=== PATIENT | female | born 1980 | race African-American/Black ===

== ENCOUNTER 2017-12-11 11:59 | Emergency (ER) | payer OTHER ==
[2017-12-11 12:50] VITALS: RESP 18; TEMP 98.4
[2017-12-11] MEDS ORDERED: HYDROcodone/APAP 5-325MG 1 EACH TAB PO STA (14:30)
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
[2017-12-11 14:37] VITALS: BP 120/72; PULSE 76
== END 2017-12-11 14:50 | disposition home or self-care (01) ==
LOC: EC 11:59
DX: Z76.0 Encounter for issue of repeat prescription (principal); R60.0 Localized edema; R07.81 Pleurodynia; M25.572 Pain in left ankle and joints of left foot; E07.9 Disorder of thyroid, unspecified; F17.200 Nicotine dependence, unspecified, uncomplicated; Z79.899 Other long term (current) drug therapy
CPT/HCPCS: 99283

== ENCOUNTER 2018-09-21 13:52 | Emergency (ER) | payer OTHER ==
--- NOTE | 2018-09-21 14:23 | ED ---
Recheck HPI - General Chief Complaint: Recheck/Abnormal Lab/Rx Stated Complaint: low blood pressure/thyroid med refill Time Seen by Provider: 09/21/18 14:22 Source: patient, RN notes reviewed, old records reviewed Mode of arrival: wheelchair Limitations: no limitations - History of Present Illness Initial Comments: This is a 38-year-old female to ER for evaluation. Patient resents today for medication refill secondary to hypothyroidism for thyroid medication. Patient has recent travel history or sick contacts also states that she feels unwell. Feels weak and like she may be having a low blood counts has had low blood count Emergency denies bleeding no nausea vomiting of blood or blood in her stool no significant menses currently. Complaint: medication refill request, other (Patient alcohol also concern over low hemoglobin possibility) -: days(s) Returns Today for: other (Weakness increasing she believes it may be low hemoglobin) Symptoms Since Prior Visit: no new symptoms (As far as thyroid goes) Context: ran out of medication Associated Symptoms: malaise - Related Data Home Medications Medication Instructions Recorded Confirmed Ferrous Sulfate [Feosol] 325 mg PO DAILY 09/21/18 09/21/18 Previous Rx's Medication Instructions Recorded Levothyroxine Sodium [Synthroid] 100 mcg PO DAILY #30 tab 09/21/18 Allergies Allergy/AdvReac Type Severity Reaction Status Date / Time No Known Allergies Allergy Verified 09/21/18 14:31 Review of Systems ROS Statement: Those systems with pertinent positive or pertinent negative responses have been documented in the HPI. ROS Other: All systems not noted in ROS Statement are negative. Past Medical History Past Medical History: Thyroid Disorder Additional Past Medical History / Comment(s): anemia History of Any Multi-Drug Resistant Organisms: None Reported Past Surgical History: Section, Hysterectomy Additional Past Surgical History / Comment(s): thyroid c sections x4 Past Psychological History: No Psychological Hx Reported Smoking Status: Current every day smoker Past Alcohol Use History: None Reported Past Drug Use History: Marijuana General Exam Limitations: no limitations General appearance: alert, in no apparent distress Head exam: Present: atraumatic, normocephalic, normal inspection Eye exam: Present: normal appearance, PERRL, EOMI. Absent: scleral icterus, conjunctival injection, periorbital swelling ENT exam: Present: normal exam, mucous membranes moist Neck exam: Present: normal inspection. Absent: tenderness, meningismus, ly mphadenopathy Respiratory exam: Present: normal lung sounds bilaterally. Absent: respiratory distress, wheezes, rales, rhonchi, stridor Cardiovascular Exam: Present: regular rate, normal rhythm, normal heart sounds. Absent: systolic murmur, diastolic murmur, rubs, gallop, clicks GI/Abdominal exam: Present: soft, normal bowel sounds. Absent: distended, tenderness, guarding, rebound, rigid Extremities exam: Present: normal inspection, full ROM, normal capillary refill. Absent: tenderness, pedal edema, joint swelling, calf tenderness Back exam: Present: normal inspection Neurological exam: Present: alert, oriented X3, CN II-XII intact Psychiatric exam: Present: normal affect, normal mood Skin exam: Present: warm, dry, intact, normal color. Absent: rash Course Vital Signs 09/21/18 09/21/18 09/21/18 14:07 14:26 16:02 Temperature 98.3 F 98.1 F Pulse Rate 60 72 Respiratory 18 17 Rate Blood Pressure 95/60 108/83 118/81 O2 Sat by Pulse 100 97 Oximetry Medical Decision Making - Medical Decision Making 38 female the ER for evaluation medication refill, medication will be refilled here in the ER, patient also has normal hemoglobin here no active bleeding and can be discharged home - Lab Data Result diagrams: 09/21/18 15:05 09/21/18 15:05 Lab Results 09/21/18 09/21/18 09/21/18 Range/Units 15:05 15:05 15:05 WBC 5.8 (3.8-10.6) k/uL RBC 3.99 (3.80-5.40) m/uL Hgb 11.9 (11.4-16.0) gm/dL Hct 36.5 (34.0-46.0) % MCV 91.6 (80.0-100.0) fL MCH 30.0 (25.0-35.0) pg MCHC 32.7 (31.0-37.0) g/dL RDW 14.8 (11.5-15.5) % Plt Count 222 (150-450) k/uL Neutrophils % 53 % Lymphocytes % 35 % Monocytes % 6 % Eosinophils % 3 % Basophils % 1 % Neutrophils # 3.1 (1.3-7.7) k/uL Lymphocytes # 2.0 (1.0-4.8) k/uL Monocytes # 0.3 (0-1.0) k/uL Eosinophils # 0.2 (0-0.7) k/uL Basophils # 0.1 (0-0.2) k/uL Sodium 138 (137-145) mmol/L Potassium 3.8 (3.5-5.1) mmol/L Chloride 107 (98-107) mmol/L Carbon Dioxide 25 (22-30) mmol/L Anion Gap 6 mmol/L BUN 10 (7-17) mg/dL Creatinine 0.91 (0.52-1.04) mg/dL Est GFR (CKD-EPI)AfAm >90 (>60 ml/min/1.73 sqM) Est GFR (CKD-EPI)NonAf 79 (>60 ml/min/1.73 sqM) Glucose 76 (74-99) mg/dL Calcium 8.7 (8.4-10.2) mg/dL Magnesium 2.1 (1.6-2.3) mg/dL Total Bilirubin 0.4 (0.2-1.3) mg/dL AST 32 (14-36) U/L ALT 16 (9-52) U/L Alkaline Phosphatase 57 (38-126) U/L Creatine Kinase 510 H (30-135) U/L Troponin I <0.012 (0.000-0.034) ng/mL Total Protein 7.2 (6.3-8.2) g/dL Albumin 4.1 (3.5-5.0) g/dL Lipase 46 (23-300) U/L Disposition Clinical Impression: Encounter for medication refill Disposition: HOME SELF-CARE Condition: Good Instructions (If sedation given, give patient instructions): Medicine Refill (ED) Prescriptions: Levothyroxine Sodium [Synthroid] 100 mcg PO DAILY #30 tab Is patient prescribed a controlled substance at d/c from ED?: No Referrals: None,Stated [Primary Care Provider] - 1-2 days
[2018-09-21] MEDS ORDERED: LEVOTHYROXINE 100 MCG TAB PO STA (14:50)
[2018-09-21] MEDS ORDERED: SODIUM CHLORIDE 0.9% 1,000 ML IV STA (14:50)
[2018-09-21 15:17] LABS: Basophils # (A) 0.1 k/uL (0-0.2); Basophils % (A) 1 %; Eosinophils # (A) 0.2 k/uL (0-0.7); Eosinophils % (A) 3 %; HCT 36.5 % (34.0-46.0); HGB 11.9 gm/dL (11.4-16.0); Lymphocytes % (A) 35 %; MCHC 32.7 g/dL (31.0-37.0); MCV 91.6 fL (80.0-100.0); Mean Platelet Volume 7.7; Monocytes # (A) 0.3 k/uL (0-1.0); Monocytes % (A) 6 %; Neutrophils # (A) 3.1 k/uL (1.3-7.7); Neutrophils % (A) 53 %; Platelet Count 222 k/uL (150-450); RBC 3.99 m/uL (3.80-5.40); RDW 14.8 % (11.5-15.5); WBC 5.8 k/uL (3.8-10.6)
[2018-09-21 15:31] LABS: ALT 16 U/L (9-52); AST 32 U/L (14-36); African American GFR (CKD) >90 (>60 ml/min/1.73 sqM); Albumin 4.1 g/dL (3.5-5.0); Alkaline Phosphatase 57 U/L (38-126); Anion Gap 6 mmol/L; Blood Urea Nitrogen 10 mg/dL (7-17); Calcium 8.7 mg/dL (8.4-10.2); Carbon Dioxide 25 mmol/L (22-30); Chloride 107 mmol/L (98-107); Creatine Kinase 510 U/L (30-135); Glucose 76 mg/dL (74-99); Lipase 46 U/L (23-300); Magnesium 2.1 mg/dL (1.6-2.3); Potassium 3.8 mmol/L (3.5-5.1); Sodium 138 mmol/L (137-145); Total Bilirubin 0.4 mg/dL (0.2-1.3); Total Protein 7.2 g/dL (6.3-8.2)
[2018-09-21 16:04] VITALS: BP 118/81; PULSE 72; RESP 17; TEMP 98.1
== END 2018-09-21 16:04 | disposition home or self-care (01) ==
LOC: EC 13:52
DX: Z76.0 Encounter for issue of repeat prescription (principal); D64.9 Anemia, unspecified; F17.200 Nicotine dependence, unspecified, uncomplicated; Z79.899 Other long term (current) drug therapy
CPT/HCPCS: 36415; 80053; 82550; 83690; 83735; 84484; 85025; 96360; 99282

== ENCOUNTER 2018-10-20 16:08 | Emergency (ER) | payer OTHER ==
[2018-10-20 16:40] VITALS: BP 120/95; PULSE 77; RESP 17
[2018-10-20] MEDS ORDERED: PENICILLIN VK 500MG STARTER 4 TAB BTL PO STA (18:11)
[2018-10-20] MEDS ORDERED: ACETAMINOPHEN TAB 500 MG TAB PO STA (18:11)
--- NOTE | 2018-10-20 18:12 | ED ---
General Adult HPI - General Chief complaint: Dental/Oral Stated complaint: tooth pain Time Seen by Provider: 10/20/18 17:11 Source: patient, RN notes reviewed Mode of arrival: ambulatory - History of Present Illness Initial comments: 38-year-old female presents to the emergency department for chief Markus of dental pain. Patient states this has been ongoing for a few days. Patient states she thinks her wisdom tooth is growing into her nerve. Denies any difficulty opening the mouth. States it does hurt hot and cold. Denies any fevers or chills. Denies any neck tenderness or stiffness.Patient has no other complaints at this time including shortness of breath, chest pain, abdominal pain, nausea or vomiting, headache, or visual changes. - Related Data Home Medications Medication Instructions Recorded Confirmed Ibuprofen [Advil] 200 mg PO Q6H PRN 10/20/18 10/20/18 Previous Rx's Medication Instructions Recorded Levothyroxine Sodium [Synthroid] 100 mcg PO DAILY #30 tab 09/21/18 Penicillin V Potassium [Pen Vee K] 500 mg PO Q6H 10 Days #40 tablet 10/20/18 Allergies Allergy/AdvReac Type Severity Reaction Status Date / Time No Known Allergies Allergy Verified 10/20/18 17:29 Review of Systems ROS Statement: Those systems with pertinent positive or pertinent negative responses have been documented in the HPI. ROS Other: All systems not noted in ROS Statement are negative. Past Medical History Past Medical History: Thyroid Disorder Additional Past Medical History / Comment(s): anemia History of Any Multi-Drug Resistant Organisms: None Reported Past Surgical History: Section, Hysterectomy Additional Past Surgical History / Comment(s): thyroid c sections x4 Past Psychological History: No Psychological Hx Reported Smoking Status: Current every day smoker Past Alcohol Use History: None Reported Past Drug Use History: Marijuana General Exam General appearance: alert, in no apparent distress Head exam: Present: atraumatic, normocephalic, normal inspection Eye exam: Present: normal appearance, PERRL, EOMI. Absent: scleral icterus, conjunctival injection, periorbital swelling ENT exam: Present: normal exam, mucous membranes moist, TM's normal bilaterally, normal external ear exam. Absent: normal oropharynx (Fracture evident to tooth 32. No abscess present.) Neck exam: Present: normal inspection, full ROM. Absent: tenderness, meningismus, lymphadenopathy Respiratory exam: Present: normal lung sounds bilaterally. Absent: respiratory distress, wheezes, rales, rhonchi, stridor Cardiovascular Exam: Present: regular rate, normal rhythm, normal heart sounds. Absent: systolic murmur, diastolic murmur, rubs, gallop, clicks Neurological exam: Present: alert, oriented X3, CN II-XII intact Psychiatric exam: Present: normal affect, normal mood Course Vital Signs 10/20/18 16:37 Pulse Rate 77 Respiratory 17 Rate Blood Pressure 120/95 O2 Sat by Pulse 99 Oximetry Medical Decision Making - Medical Decision Making 38-year-old female percent to the emergency department for dental pain times a few days. Patient states her back molar hurts. No fevers or chills. No neck stiffness or difficulty opening the mouth. No sublingual edema. Patient does appear to have a fractured tooth right posterior molar. No abscesses identified by palpation or visualization of the gumline. Patient will be started on penicillin. Given Tylenol. Recommended following up with [facility]. Recommended returning here if she has any worsening symptoms. Disposition Clinical Impression: Toothache, Fracture of tooth Disposition: HOME SELF-CARE Condition: Good Instructions (If sedation given, give patient instructions): Toothache (ED) Additional Instructions: Please follow up with dentist and primary care soon as possible. Take penicillin as directed. Take Tylenol for pain. Return to the emergency department if you have any worsening symptoms. Pending Sale To [facility] dental clinic: [address] [place] [id number] Prescriptions: Penicillin V Potassium [Pen Vee K] 500 mg PO Q6H 10 Days #40 tablet Is patient prescribed a controlled substance at d/c from ED?: No Referrals: Gladys Velez MD [REFERRING] - 1-2 days Time of Disposition: 18:10
== END 2018-10-20 18:37 | disposition home or self-care (01) ==
LOC: EC 16:08
DX: S02.5XXA Fracture of tooth (traumatic), initial encounter for closed fracture (principal); F17.200 Nicotine dependence, unspecified, uncomplicated; X58.XXXA Exposure to other specified factors, initial encounter
CPT/HCPCS: 99283

== ENCOUNTER 2019-03-04 02:39 | Inpatient (IN) | payer OTHER ==
[2019-03-04] MEDS ORDERED: SODIUM CHLORIDE 0.9% 500 ML 500 ML IV STA (02:41)
[2019-03-04] MEDS ORDERED: AMPICILLIN-SULBACTAM 3 GM in SODIUM CHLORIDE 0.9% 100 ML IVPB STA (02:41)
[2019-03-04 03:14] LABS: Basophils % (A) 0 %; Eosinophils # (A) 0.1 k/uL (0-0.7); Eosinophils % (A) 1 %; HCT 29.2 % (34.0-46.0); HGB 10.1 gm/dL (11.4-16.0); Lymphocytes # (A) 1.1 k/uL (1.0-4.8); Lymphocytes % (A) 9 %; MCH 30.9 pg (25.0-35.0); MCHC 34.5 g/dL (31.0-37.0); MCV 89.5 fL (80.0-100.0); Mean Platelet Volume 5.9; Monocytes # (A) 0.5 k/uL (0-1.0); Monocytes % (A) 5 %; Neutrophils # (A) 10.1 k/uL (1.3-7.7); Neutrophils % (A) 84 %; Platelet Count 267 k/uL (150-450); RBC 3.26 m/uL (3.80-5.40); RDW 13.1 % (11.5-15.5); WBC 11.9 k/uL (3.8-10.6)
[2019-03-04] MEDS ORDERED: MORPHINE SULFATE 4 MG/ML SYRINGE IV STA (03:28)
--- NOTE | 2019-03-04 03:33 | CT ---
EXAMINATION TYPE: CT soft tissue neck w con DATE OF EXAM: 03/04/2019 3:16 AM COMPARISON: None HISTORY: infection CT DLP: 262.4 mGycm Automated exposure control for dose reduction was used. CONTRAST: CT scan of the neck is performed following with IV Contrast, patient injected with 100 mL of Isovue 3 00. Axial images are obtained, coronal and sagittal reformatted images are reviewed. FINDINGS: There is asymmetric increased soft tissue density at the angle of the right hemimandible. There is mi nimal subcutaneous edema on the anterior neck on the right side compared to the left. The epiglottis is normal. Adenoids appear normal. There is mild prominence of the tonsils. Subglottic trachea appear s normal. There are clips from thyroid surgery. Margins of the right submandibular salivary gland are indistinct. There is edema around the gland. There is no discrete fluid collection. There is normal contrast opacification of the carotid arteries and jugular veins. There is normal con trast opacification of the vertebral arteries. There is no significant cervical adenopathy. There is some asymmetric increased density in the inferior right parotid gland compared to the left. IMPRESSION: There is swelling and edema around the right submandibular salivary gland and also invol ving the lingula gland. There is minimal involvement of the right parotid gland and this is consisten t with inflammatory process. There is no drainable fluid collection.
[2019-03-04 03:40] LABS: African American GFR (CKD) >90 (>60 ml/min/1.73 sqM); Anion Gap 7 mmol/L; Blood Urea Nitrogen 6 mg/dL (7-17); Calcium 8.2 mg/dL (8.4-10.2); Carbon Dioxide 23 mmol/L (22-30); Chloride 108 mmol/L (98-107); Glucose 91 mg/dL (74-99); Non-African American GFR(CKD) >90 (>60 ml/min/1.73 sqM); Potassium 3.2 mmol/L (3.5-5.1); Sodium 138 mmol/L (137-145)
[2019-03-04] MEDS ORDERED: HYDROmorphone 0.5 MG/0.5 ML SYRINGE IVP STA (04:31)
[2019-03-04] MEDS ORDERED: ACETAMINOPHEN TAB 325 MG TAB PO PRN (04:43)
[2019-03-04] MEDS ORDERED: NALOXONE 0.4 MG/ML 1 ML VIAL IV PRN (04:43)
[2019-03-04] MEDS ORDERED: ONDANSETRON 4 MG/2 ML VIAL IVP PRN (04:43)
--- NOTE | 2019-03-04 04:51 | ED ---
ENT HPI - General Chief complaint: Dental/Oral Stated complaint: Dental Pain Time Seen by Provider: 03/04/19 02:41 Source: patient, EMS Mode of arrival: EMS - History of Present Illness Initial comments: This patient is 38-year-old woman who presents to be evaluated for possible Barrington's angina. The patient had gone to [facility] this evening for right-sided dental pain and associated facial swelling. While the patient was there she had labs checked and was given dose of clindamycin 900 mg by IV. The physician there phoned and stated that he was concerned about Barrington angina based on the exam and transferred patient here is a do not have oral surgery cov [facility]. The patient states that she began having right mandibular dental pain approximately 8 days ago. She states that she did not have a chance to see the dentist as she was working. For the past approximately 3 days she has noted increasing swelling that got much worse tonight. She states the pain as an aching, severe, worse when she attempts to eat. She is not having any dyspnea or trouble with speech. MD complaint: tooth pain Onset/Timin -: days(s) Location: tooth # (32) Severity: severe Quality: aching Consistency: constant Improves with: none Worsens with: eating Associated Symptoms: toothache - Related Data Home Medications Medication Instructions Recorded Confirmed Levothyroxine Sodium [Synthroid] 100 mcg PO DAILY 03/04/19 03/04/19 Previous Rx's Medication Instructions Recorded Acetaminophen Tab [Tylenol] 650 mg PO Q6HR PRN tab 03/08/19 Amoxicillin/Potassium Clav 1 tab PO Q12HR #14 tab 03/08/19 [Augmentin 875-125 Tablet] Ibuprofen [Motrin] 400 mg PO Q6HR PRN #20 tab 03/08/19 Multivitamins, Thera [Multivitamin] 1 tab PO DAILY #30 tablet 03/08/19 Allergies Allergy/AdvReac Type Severity Reaction Status Date / Time No Known Allergies Allergy Verified 03/04/19 09:07 Review of Systems ROS Statement: Those systems with pertinent positive or pertinent negative responses have been documented in the HPI. ROS Other: All systems not noted in ROS Statement are negative. Constitutional: Denies: fever, chills Respiratory: Denies: cough, dyspnea Cardiovascular: Denies: chest pain Gastrointestinal: Denies: abdominal pain, vomiting Skin: Denies: rash Neurological: Denies: headache, weakness Past Medical History Past Medical History: Thyroid Disorder Additional Past Medical History / Comment(s): anemia History of Any Multi-Drug Resistant Organisms: None Reported Past Surgical History: Section, Hysterectomy Additional Past Surgical History / Comment(s): thyroid c sections x4 Past Psychological History: No Psychological Hx Reported Smoking Status: Current every day smoker Past Alcohol Use History: None Reported Past Drug Use History: Marijuana General Exam General appearance: alert, in no apparent distress Head exam: Present: atraumatic, normocephalic Eye exam: Present: normal appearance. Absent: scleral icterus, conjunctival injection ENT exam: Present: mucous membranes moist, TM's normal bilaterally Neck exam: Present: tenderness, full ROM, other (There is submandibular fullness on the right. There is moderate tenderness. Speech is clear.). Absent: meningismus Respiratory exam: Present: normal lung sounds bilaterally. Absent: respiratory distress, wheezes, rales, rhonchi, stridor Cardiovascular Exam: Present: regular rate, normal rhythm, normal heart sounds. Absent: systolic murmur, diastolic murmur, rubs, gallop GI/Abdominal exam: Present: soft. Absent: distended, tenderness, guarding, rebound Extremities exam: Present: normal inspection, normal capillary refill. Absent: pedal edema, calf tenderness Back exam: Present: normal inspection Neurological exam: Present: alert Skin exam: Present: warm, dry, intact, normal color. Absent: rash Course Vital Signs 03/04/19 03/04/19 02:42 05:10 Temperature 98 F Pulse Rate 83 62 Respiratory 18 16 Rate Blood Pressure 124/84 117/89 O2 Sat by Pulse 99 96 Oximetry Medical Decision Making - Lab Data Result diagrams: 03/07/19 06:09 03/07/19 06:09 Lab Results 03/04/19 03/04/19 03/04/19 Range/Units 03:00 03:00 22:11 WBC 11.9 H (3.8-10.6) k/uL RBC 3.26 L (3.80-5.40) m/uL Hgb 10.1 L (11.4-16.0) gm/dL Hct 29.2 L (34.0-46.0) % MCV 89.5 (80.0-100.0) fL MCH 30.9 (25.0-35.0) pg MCHC 34.5 (31.0-37.0) g/dL RDW 13.1 (11.5-15.5) % Plt Count 267 (150-450) k/uL Neutrophils % 84 % Lymphocytes % 9 % Monocytes % 5 % Eosinophils % 1 % Basophils % 0 % Neutrophils # 10.1 H (1.3-7.7) k/uL Lymphocytes # 1.1 (1.0-4.8) k/uL Monocytes # 0.5 (0-1.0) k/uL Eosinophils # 0.1 (0-0.7) k/uL Basophils # 0.0 (0-0.2) k/uL Sodium 138 (137-145) mmol/L Potassium 3.2 L (3.5-5.1) mmol/L Chloride 108 H (98-107) mmol/L Carbon Dioxide 23 (22-30) mmol/L Anion Gap 7 mmol/L BUN 6 L (7-17) mg/dL Creatinine 0.65 (0.52-1.04) mg/dL Est GFR (CKD-EPI)AfAm >90 (>60 ml/min/1.73 sqM) Est GFR (CKD-EPI)NonAf >90 (>60 ml/min/1.73 sqM) Glucose 91 (74-99) mg/dL POC Glucose (mg/dL) 151 H (75-99) mg/dL POC Glu [place] ID Karo Finch Calcium 8.2 L (8.4-10.2) mg/dL 03/05/19 03/05/19 03/05/19 Range/Units 06:57 08:59 08:59 WBC 19.5 H (3.8-10.6) k/uL RBC 3.56 L (3.80-5.40) m/uL Hgb 10.7 L (11.4-16.0) gm/dL Hct 32.7 L (34.0-46.0) % MCV 91.7 (80.0-100.0) fL MCH 30.1 (25.0-35.0) pg MCHC 32.9 (31.0-37.0) g/dL RDW 13.4 (11.5-15.5) % Plt Count 305 (150-450) k/uL Neutrophils % 92 % Lymphocytes % 5 % Monocytes % 3 % Eosinophils % 0 % Basophils % 0 % Neutrophils # 17.9 H (1.3-7.7) k/uL Lymphocytes # 0.9 L (1.0-4.8) k/uL Monocytes # 0.5 (0-1.0) k/uL Eosinophils # 0.0 (0-0.7) k/uL Basophils # 0.0 (0-0.2) k/uL Sodium 138 (137-145) mmol/L Potassium 3.9 (3.5-5.1) mmol/L Chloride 104 (98-107) mmol/L Carbon Dioxide 25 (22-30) mmol/L Anion Gap 9 mmol/L BUN 10 (7-17) mg/dL Creatinine 0.65 (0.52-1.04) mg/dL Est GFR (CKD-EPI)AfAm >90 (>60 ml/min/1.73 sqM) Est GFR (CKD-EPI)NonAf >90 (>60 ml/min/1.73 sqM) Glucose 133 H (74-99) mg/dL POC Glucose (mg/dL) 152 H (75-99) mg/dL POC Glu [place] ID Christie Jackson Calcium 8.5 (8.4-10.2) mg/dL 03/05/19 03/05/19 03/05/19 Range/Units 12:24 16:41 20:37 WBC (3.8-10.6) k/uL RBC (3.80-5.40) m/uL Hgb (11.4-16.0) gm/dL Hct (34.0-46.0) % MCV (80.0-100.0) fL MCH (25.0-35.0) pg MCHC (31.0-37.0) g/dL RDW (11.5-15.5) % Plt Count (150-450) k/uL Neutrophils % % Lymphocytes % % Monocytes % % Eosinophils % % Basophils % % Neutrophils # (1.3-7.7) k/uL Lymphocytes # (1.0-4.8) k/uL Monocytes # (0-1.0) k/uL Eosinophils # (0-0.7) k/uL Basophils # (0-0.2) k/uL Sodium (137-145) mmol/L Potassium (3.5-5.1) mmol/L Chloride (98-107) mmol/L Carbon Dioxide (22-30) mmol/L Anion Gap mmol/L BUN (7-17) mg/dL Creatinine (0.52-1.04) mg/dL Est GFR (CKD-EPI)AfAm (>60 ml/min/1.73 sqM) Est GFR (CKD-EPI)NonAf (>60 ml/min/1.73 sqM) Glucose (74-99) mg/dL POC Glucose (mg/dL) 142 H 123 H 163 H (75-99) mg/dL POC Glu [employer] MCKENZIE Manuel, Christie Manuel, Karo Nunez Calcium (8.4-10.2) mg/dL 03/06/19 03/06/19 03/06/19 Range/Units 07:04 07:53 07:53 WBC 21.2 H (3.8-10.6) k/uL RBC 3.60 L (3.80-5.40) m/uL Hgb 10.7 L (11.4-16.0) gm/dL Hct 33.3 L (34.0-46.0) % MCV 92.5 (80.0-100.0) fL MCH 29.7 (25.0-35.0) pg MCHC 32.1 (31.0-37.0) g/dL RDW 13.6 (11.5-15.5) % Plt Count 335 (150-450) k/uL Neutrophils % 92 % Lymphocytes % 5 % Monocytes % 3 % Eosinophils % 0 % Basophils % 0 % Neutrophils # 19.4 H (1.3-7.7) k/uL Lymphocytes # 1.0 (1.0-4.8) k/uL Monocytes # 0.6 (0-1.0) k/uL Eosinophils # 0.0 (0-0.7) k/uL Basophils # 0.0 (0-0.2) k/uL Sodium 141 (137-145) mmol/L Potassium 4.7 (3.5-5.1) mmol/L Chloride 102 (98-107) mmol/L Carbon Dioxide 30 (22-30) mmol/L Anion Gap 9 mmol/L BUN 11 (7-17) mg/dL Creatinine 0.71 (0.52-1.04) mg/dL Est GFR (CKD-EPI)AfAm >90 (>60 ml/min/1.73 sqM) Est GFR (CKD-EPI)NonAf >90 (>60 ml/min/1.73 sqM) Glucose 111 H (74-99) mg/dL POC Glucose (mg/dL) 130 H (75-99) mg/dL POC Glu [place] ID Blue, Heather Calcium 9.2 (8.4-10.2) mg/dL 03/06/19 Range/Units 11:52 WBC (3.8-10.6) k/uL RBC (3.80-5.40) m/uL Hgb (11.4-16.0) gm/dL Hct (34.0-46.0) % MCV (80.0-100.0) fL MCH (25.0-35.0) pg MCHC (31.0-37.0) g/dL RDW (11.5-15.5) % Plt Count (150-450) k/uL Neutrophils % % Lymphocytes % % Monocytes % % Eosinophils % % Basophils % % Neutrophils # (1.3-7.7) k/uL Lymphocytes # (1.0-4.8) k/uL Monocytes # (0-1.0) k/uL Eosinophils # (0-0.7) k/uL Basophils # (0-0.2) k/uL Sodium (137-145) mmol/L Potassium (3.5-5.1) mmol/L Chloride (98-107) mmol/L Carbon Dioxide (22-30) mmol/L Anion Gap mmol/L BUN (7-17) mg/dL Creatinine (0.52-1.04) mg/dL Est GFR (CKD-EPI)AfAm (>60 ml/min/1.73 sqM) Est GFR (CKD-EPI)NonAf (>60 ml/min/1.73 sqM) Glucose (74-99) mg/dL POC Glucose (mg/dL) 130 H (75-99) mg/dL POC Glu [place] ID Blue, Heather Calcium (8.4-10.2) mg/dL Disposition Clinical Impression: Toothache, Dental infection Disposition: ADMITTED IP TO THIS HOSP Condition: Good Is patient prescribed a controlled substance at d/c from ED?: No
[2019-03-04] MEDS: methylPREDNISolone SOD SUCCI 125 MG/2 ML VIAL IV SCH ×3 (05:52→17:51)
[2019-03-04] MEDS: LEVOTHYROXINE 50 MCG TAB PO SCH (06:05)
[2019-03-04] MEDS: HYDROmorphone 1 MG/ML 1 ML SYRINGE IVP PRN ×3 (06:58→12:26)
--- NOTE | 2019-03-04 10:59 | CONS ---
CONSULTATION CHIEF COMPLAINT: "My face is swollen". HISTORY OF PRESENT ILLNESS: The patient is a 38-year-old Black female who states that she has had intermittent pain and swelling associated with the lower right wisdom tooth. She states that approximately a week ago it started to swell and intermittently caused pain. This progressively worsened and she presented to the ER this morning where she was evaluated and admitted for right submandibular swelling and pain secondary to an odontogenic infection. PAST MEDICAL HISTORY: Her past medical history significant for hypothyroidism and anemia. SOCIAL HISTORY: Social history: The patient denies any smoking, alcohol abuse, or illicit drug use. MEDICATIONS: Her medications include Synthroid and iron supplementation. PHYSICAL EXAMINATION: Physical examination reveals the patient to be in mild distress. Resting comfortably. Her vitals are stable. Head and neck exam shows moderate soft tissue swelling of the right submandibular region extending to the midline. This area is very tender to palpation. Intraoral examination reveals tooth #32 is partially erupted with associated pericoronitis and purulent drainage draining from the region. The floor of the mouth is mildly tender. It is not elevated. The examination of the pharynx is limited secondary to her openings. Her maximal incisal opening is approximately 30 mm. The swelling extraorally is limited to the submandibular regions and into the buccal space. Labs reveal a white count of 11.9 and hemoglobin of 10. CT scan shows swelling adjacent to the submandibular gland with no definitive area of fluid collection. ASSESSMENT: Right submandibular space infection, right buccal space infection, odontogenic infection associated with tooth #32. PLAN: 1. Continue the IV Unasyn and IV steroids. 2. Apply heat to the face in that region. 3. Head of bed elevated. 4. A blenderized diet is recommended and can be advanced to soft as tolerated. 5. At this point, the area is draining and no surgery is suggested at this time. 6. I will continue to follow the patient. If the area worsens or the airway is compromised, an I and D will be performed. MMODL / IJN: [id number] /
[2019-03-04] MEDS: AMPICILLIN-SULBACTAM 3 GM in SODIUM CHLORIDE 0.9% 100 ML IVPB SCH ×2 (11:22→20:32)
[2019-03-04] MEDS: IBUPROFEN 400 MG TAB PO PRN (11:28)
[2019-03-04] MEDS ORDERED: TEMAZEPAM 15 MG CAP PO PRN (15:06)
[2019-03-04] MEDS ORDERED: ALPRAZolam 0.25 MG TAB PO PRN (15:06)
[2019-03-04] MEDS: HYDROcodone/APAP 5-325MG 1 EACH TAB PO PRN ×2 (16:05→22:10)
[2019-03-04] MEDS: INSULIN ASPART (NovoLOG) 100 UNIT/ML VIAL SQ SCH ×2 (17:50→22:13)
[2019-03-04] MEDS: HYDROmorphone 0.5 MG/0.5 ML SYRINGE IVP PRN ×2 (17:50→23:50)
--- NOTE | 2019-03-04 21:11 | HP ---
HISTORY AND PHYSICAL DATE OF SERVICE: 03/04/2019 CHIEF COMPLAINT: Pain and swelling of the right side of the neck and dental pain. HISTORY OF PRESENT ILLNESS: This 38-year-old woman with a past medical history of multiple medical problems including history of hypothyroidism, anemia, section, is not being followed by any primary physician in the outpatient setting, was complaining of significant pain and swelling of the right side of the face for the past several days. The patient is on clindamycin from [facility] per ER physician because of increasing pain and swelling. Patient came to [facility] and admitted for further evaluation and treatment. Evaluation showed an increased WBC otherwise hypokalemia. The patient also had a soft tissue CT scan of the neck which showed swelling and edema around the right submandibular salivary gland and minimal involvement of the right parotid gland was also noted and the patient is admitted for further evaluation and treatment. There is no history of fever, rigors. No headache loss of consciousness, seizures at this time. The patient also had intermittent pain in the right lower wisdom tooth as well. PAST MEDICAL HISTORY: History of hypothyroidism, history of anemia, section. MEDICATIONS: Prior to admission home medications include levothyroxine 100 mcg p.o. daily. ALLERGIES: None. FAMILY HISTORY: No history of heart attacks or strokes in the family. SOCIAL HISTORY: History of THC, history of smoking and ongoing. REVIEW OF SYSTEMS: ENT As mentioned earlier. CARDIOVASCULAR No angina or palpitations. RESPIRATORY No cough, no hemoptysis. GI No nausea, vomiting, or diarrhea. No dysuria. NERVOUS No numbness or weakness. ALLERGY/IMMUNOLOGY No asthma or hayfever. MUSCULOSKELETAL As mentioned earlier. HEMATOLOGY/ONCOLOGY Negative. ENDOCRINE As mentioned earlier. SKIN Negative. CONSTITUTIONAL No history of fever or weight loss. PSYCHIATRY As mentioned earlier PHYSICAL EXAMINATION: Alert and oriented x3. Pulse 54, blood pressure 115/76, respirations 16, temperature 98.0, pulse ox 97% on room air. HEENT: Conjunctivae normal. Oral mucosa moist. NECK: No jugular venous distention. No lymph node enlargement. CARDIOVASCULAR: S1, S2. RESPIRATORY: Diminished breath sounds at the bases. A few scattered rhonchi, no crackles. ABDOMEN: Soft, nontender. LEGS: No swelling. NERVOUS SYSTEM: Higher functions mentioned earlier. Moves all four limbs. No focal deficits. Examination of the neck: Significant pain and swelling of the right subcondylar area with firm to hard swelling present. LABS: WBC 7.2, hemoglobin 10.1, sodium 130, potassium 3.2. ASSESSMENT: 1. Right neck pain and swelling of possibly right submandibular space infection with a right buccal space infection with odontogenic infection. 2. Increased WBC. 3. Anemia. 4. Rule out submandibular sialadenitis, right. 5. Hypokalemia. 6. History of continued ongoing nicotine dependence. 7. History of THC. 8. History of anemia. 9. History of section. RECOMMENDATIONS AND DISCUSSION: In this 38-year-old woman who presented with multiple medical issues, at this time I recommend to continue current management, symptomatic treatment. Patient has been started on broad spectrum IV antibiotics, pain management, DVT prophylaxis. Patient is on IV Unasyn. Closely follow with dental surgeon, Dr. Miner. Otherwise, continue to monitor. I would also recommend the patient to follow up with primary physician closely after discharge. Further recommendations to follow. MMODL / IJN: [id number] /
[2019-03-04] MEDS: HEPARIN SODIUM,PORCINE 5,000 UNIT/ML 1 ML VIAL SQ SCH (22:05)
[2019-03-04 22:16] LABS: Glucose,Whole Blood 151 mg/dL (75-99)
[2019-03-05] MEDS: methylPREDNISolone SOD SUCCI 125 MG/2 ML VIAL IV SCH ×5 (00:07→23:30)
[2019-03-05] MEDS: HYDROmorphone 0.5 MG/0.5 ML SYRINGE IVP PRN ×3 (03:00→10:34)
[2019-03-05] MEDS: AMPICILLIN-SULBACTAM 3 GM in SODIUM CHLORIDE 0.9% 100 ML IVPB SCH ×3 (04:56→21:07)
[2019-03-05] MEDS: HYDROcodone/APAP 5-325MG 1 EACH TAB PO PRN (04:58)
[2019-03-05] MEDS: LEVOTHYROXINE 50 MCG TAB PO SCH (06:15)
[2019-03-05 07:43] LABS: Glucose,Whole Blood 152 mg/dL (75-99)
[2019-03-05] MEDS: PANTOPRAZOLE 40 MG TABLET PO SCH (07:59)
[2019-03-05] MEDS: HEPARIN SODIUM,PORCINE 5,000 UNIT/ML 1 ML VIAL SQ SCH ×2 (08:00→21:07)
[2019-03-05] MEDS: HYDROmorphone 1 MG/ML 1 ML SYRINGE IVP PRN ×4 (08:00→21:08)
[2019-03-05] MEDS: INSULIN ASPART (NovoLOG) 100 UNIT/ML VIAL SQ SCH ×4 (08:07→21:08)
[2019-03-05 09:18] LABS: Basophils % (A) 0 %; Eosinophils % (A) 0 %; HCT 32.7 % (34.0-46.0); HGB 10.7 gm/dL (11.4-16.0); Lymphocytes # (A) 0.9 k/uL (1.0-4.8); Lymphocytes % (A) 5 %; MCH 30.1 pg (25.0-35.0); MCHC 32.9 g/dL (31.0-37.0); MCV 91.7 fL (80.0-100.0); Mean Platelet Volume 6.6; Monocytes # (A) 0.5 k/uL (0-1.0); Monocytes % (A) 3 %; Neutrophils # (A) 17.9 k/uL (1.3-7.7); Neutrophils % (A) 92 %; Platelet Count 305 k/uL (150-450); RBC 3.56 m/uL (3.80-5.40); RDW 13.4 % (11.5-15.5); WBC 19.5 k/uL (3.8-10.6)
[2019-03-05 09:21] LABS: African American GFR (CKD) >90 (>60 ml/min/1.73 sqM); Anion Gap 9 mmol/L; Blood Urea Nitrogen 10 mg/dL (7-17); Calcium 8.5 mg/dL (8.4-10.2); Carbon Dioxide 25 mmol/L (22-30); Chloride 104 mmol/L (98-107); Glucose 133 mg/dL (74-99); Non-African American GFR(CKD) >90 (>60 ml/min/1.73 sqM); Potassium 3.9 mmol/L (3.5-5.1); Sodium 138 mmol/L (137-145)
[2019-03-05] MEDS: MULTIVITAMINS, THERA 1 EACH TAB PO SCH (10:16)
--- NOTE | 2019-03-05 11:21 | XR ---
EXAMINATION TYPE: XR mandible complete DATE OF EXAM: 03/05/2019 COMPARISON: CT neck 1 day earlier. HISTORY: Right tooth abscess presurgical. TECHNIQUE: 5 views of mandible including oblique and lateral images along with frontal limits. FINDINGS: Innumerable surgical clips from thyroidectomy are noted. Multiple cavitary fillings through out maxillary and mandibular teeth are seen. There is lucency at the root of right lateral third mola r tooth corresponding to known periApical abscess with moderate to severe adjacent asymmetric right-s ided soft tissue swelling redemonstrated. IMPRESSION: As above.
[2019-03-05 12:29] LABS: Glucose,Whole Blood 142 mg/dL (75-99)
[2019-03-05] MEDS ORDERED: LIDOCAINE 2%-EPI 1:100,000 20 ML VIAL SUBMUCOSAL ONE ×3 (13:40→14:56)
[2019-03-05] MEDS ORDERED: IV FLUID CONTINUATION 300 ML IV ONE (13:41)
[2019-03-05] MEDS ORDERED: fentaNYL (PF) 50 MCG/ML 2 ML AMP ONE (14:30)
[2019-03-05] MEDS ORDERED: NEOSTIGMINE 1 MG/ML 10 ML VIAL ONE (14:30)
[2019-03-05] MEDS ORDERED: MIDAZOLAM 2 MG/2 ML VIAL ONE (14:30)
[2019-03-05] MEDS ORDERED: LIDOCAINE 1% INJ 10MG/ML (20 ML MDV) ONE (14:30)
[2019-03-05] MEDS ORDERED: ROCURONIUM BROMIDE 10 MG/ML 10 ML VIAL IV ONE (14:30)
[2019-03-05] MEDS ORDERED: PROPOFOL 10 MG/ML 20 ML VIAL IV ONE (14:30)
[2019-03-05] MEDS ORDERED: GLYCOPYRROLATE 0.2 MG/ML 2 ML VIAL ONE (14:30)
[2019-03-05] MEDS ORDERED: LACTATED RINGERS 1,000 ML IV ONE (14:53)
[2019-03-05] MEDS: HYDROmorphone 1 MG/ML 1 ML SYRINGE IVP ONE ×2 (15:41→15:46)
[2019-03-05 16:56] LABS: Glucose,Whole Blood 123 mg/dL (75-99)
[2019-03-05 20:43] LABS: Glucose,Whole Blood 163 mg/dL (75-99)
--- NOTE | 2019-03-05 22:48 | PN ---
PROGRESS NOTE DATE OF SERVICE: 03/05/2019 This 39-year-old woman who was admitted with pain and swelling, infection of submandibular space on the right side secondary to carious teeth, had worsening today. The patient has more swelling and pain. Dr. Miner is planning surgery today. No chest pain. No palpitations. No fever. PHYSICAL EXAMINATION: Alert and oriented x3. Pulse is 50, blood pressure 128/70, respiration 18, temperature 98 degrees, pulse ox 94% on room air. HEENT: Conjunctivae normal. NECK: Pain and swelling of the right side of the neck, submandibular area; firm to hard swelling present. CARDIOVASCULAR SYSTEM: S1, S2 muffled. RESPIRATORY SYSTEM: Clear to auscultation. ABDOMEN: Soft. NERVOUS SYSTEM: No focal deficit. LABS: WBC 19.5, hemoglobin 10.7. ASSESSMENT: 1. Acute right neck pain, possibly right submandibular space infection with right buccal space infection secondary to odontogenic infection. 2. Increased white count. 3. Anemia. 4. Hypokalemia. 5. Rule out submandibular sialadenitis, right. 6. History of continued ongoing nicotine dependence. 7. History of tetrahydrocannabinol. 8. History of anemia. 9. History of section. RECOMMENDATIONS AND DISCUSSION: I recommend to continue current medications, continue with the monitoring, symptomatic treatment. Continue with the broad-spectrum IV antibiotics. Surgery per Dr. Miner. Guarded prognosis because of multiple complex medical issues. Further recommendations to follow. MMODL / IJN: [id number] /
--- NOTE | 2019-03-05 23:00 | OP ---
OPERATIVE REPORT DATE OF PROCEDURE: 03/05/2019. PREOPERATIVE DIAGNOSES: 1. Right submandibular space infection. 2. Right buccal space infection. 3. Tooth #32 is carious and abscessed. POSTOPERATIVE DIAGNOSES: 1. Right submandibular space infection. 2. Right buccal space infection. 3. Tooth #32 is carious and abscessed. PROCEDURES: 1. Incision and drainage of the right submandibular space infection. 2. Surgical extraction of tooth #32. SURGEON: Dr. Miner. ANESTHESIA: General via oral endotracheal intubation. ESTIMATED BLOOD LOSS: 1 mL. FLUIDS: LR 500 mL. SPECIMENS: None. DRAINS: One quarter-inch [place] drain placed into the right submandibular space. CULTURES: Aerobic and anaerobic cultures with Gram stain were obtained. INDICATIONS FOR PROCEDURE: The patient is a 39-year-old black female who was admitted for a right submandibular space infection secondary to an odontogenic source. She has been on IV Unasyn and will now undergo incision and drainage of the right submandibular space in addition to extraction of tooth #32. The risks, benefits and alternatives of the procedure were reviewed with the patient at length and all of her questions were answered to her satisfaction. PROCEDURE DESCRIPTION: The patient was taken to the operating room and placed on the operating table in the supine position. Next the patient was induced via the IV route and she was intubated orally. The tube was secured and a general plane of anesthesia was maintained throughout the operative course. The surgeon then approached the operative field and a shoulder roll was placed. The patient was prepped and draped in the usual manner for this procedure. Attention was then directed to the right submandibular space where the fluctuant swelling was palpated, and a 1 cm incision was made through the skin into the subcutaneous tissue. Blunt dissection with a long-tipped hemostat was then performed through the mylohyoid muscle into the submandibular space. Copious amounts of purulent drainage were obtained; approximately 10 mL. Anaerobic and aerobic cultures were obtained. A quarter- inch [place] drain was then placed into the space and secured utilizing 2-0 nylon suture. Attention was then directed intraorally, where a 15-blade was utilized to develop a small buccal envelope flap and tooth #32 was removed utilizing an [id number] technique. The wound was irrigated thoroughly. The patient tolerated the procedure well without complications. An ABD was then used to dress the submandibular region to cover the drain. MMODL / IJN: [id number] /
[2019-03-06] MEDS: HYDROmorphone 1 MG/ML 1 ML SYRINGE IVP PRN ×7 (00:05→23:58)
[2019-03-06] MEDS: AMPICILLIN-SULBACTAM 3 GM in SODIUM CHLORIDE 0.9% 100 ML IVPB SCH ×3 (03:50→20:52)
[2019-03-06] MEDS: methylPREDNISolone SOD SUCCI 125 MG/2 ML VIAL IV SCH ×4 (05:46→23:57)
[2019-03-06] MEDS: LEVOTHYROXINE 50 MCG TAB PO SCH (05:46)
[2019-03-06] MEDS: HEPARIN SODIUM,PORCINE 5,000 UNIT/ML 1 ML VIAL SQ SCH ×2 (06:57→20:52)
[2019-03-06] MEDS: PANTOPRAZOLE 40 MG TABLET PO SCH (06:57)
[2019-03-06] MEDS: INSULIN ASPART (NovoLOG) 100 UNIT/ML VIAL SQ SCH ×4 (07:04→21:31)
[2019-03-06 07:07] LABS: Glucose,Whole Blood 130 mg/dL (75-99)
[2019-03-06 08:21] LABS: Basophils % (A) 0 %; Eosinophils % (A) 0 %; HCT 33.3 % (34.0-46.0); HGB 10.7 gm/dL (11.4-16.0); Lymphocytes % (A) 5 %; MCH 29.7 pg (25.0-35.0); MCHC 32.1 g/dL (31.0-37.0); MCV 92.5 fL (80.0-100.0); Mean Platelet Volume 6.6; Monocytes # (A) 0.6 k/uL (0-1.0); Monocytes % (A) 3 %; Neutrophils # (A) 19.4 k/uL (1.3-7.7); Neutrophils % (A) 92 %; Platelet Count 335 k/uL (150-450); RDW 13.6 % (11.5-15.5); WBC 21.2 k/uL (3.8-10.6)
[2019-03-06 08:39] LABS: African American GFR (CKD) >90 (>60 ml/min/1.73 sqM); Anion Gap 9 mmol/L; Blood Urea Nitrogen 11 mg/dL (7-17); Calcium 9.2 mg/dL (8.4-10.2); Carbon Dioxide 30 mmol/L (22-30); Chloride 102 mmol/L (98-107); Glucose 111 mg/dL (74-99); Non-African American GFR(CKD) >90 (>60 ml/min/1.73 sqM); Potassium 4.7 mmol/L (3.5-5.1); Sodium 141 mmol/L (137-145)
[2019-03-06] MEDS: MULTIVITAMINS, THERA 1 EACH TAB PO SCH (11:08)
[2019-03-06 11:56] LABS: Glucose,Whole Blood 130 mg/dL (75-99)
[2019-03-06] MEDS: HYDROcodone/APAP 5-325MG 1 EACH TAB PO PRN (16:06)
[2019-03-06 17:02] LABS: Glucose,Whole Blood 124 mg/dL (75-99)
--- NOTE | 2019-03-06 19:14 | PN ---
PROGRESS NOTE . DATE OF SERVICE: 03/06/2019 This 39-year-old woman who was admitted with acute right neck pain, also had a submandibular space infection. Patient had an incision and drainage by Dr. Miner. No chest pain. No palpitations. Patient on broad IV antibiotics. White count is elevated. PHYSICAL EXAM: Alert and oriented x3. Pulse is 53, blood pressure 135/89, respirations 16, temperature 98.1, pulse ox 96% on room air. HEENT: Conjunctivae normal. Oral mucosa moist. NECK: No jugular venous distention. No lymph node enlargement. CARDIOVASCULAR: S1, S2. RESPIRATORY: Diminished breath sounds at the bases. A few rhonchi, no crackles. ABDOMEN: Soft, nontender. LEGS: No swelling. Right neck is status post incision and drainage with Tari drain. LABS: WBC 21.2, hemoglobin 10.7. Accu-Cheks noted. ASSESSMENT: 1. Acute right neck pain with right submandibular space infection, right buccal space infection secondary to odontogenic infection, status post incision and drainage. 2. Increased WBC. 3. Anemia. 4. Hypokalemia. 5. History of continued ongoing nicotine dependence. 6. History of THC. 7. History of anemia. 8. History of section. RECOMMENDATIONS AND DISCUSSION: Recommend to continue current medications, continue symptomatic treatment. The cultures are negative so far. Continue the broad-spectrum IV antibiotics. Closely follow with Dr. Miner. Guarded prognosis. Further recommendations to follow. Operative report reviewed. MMODL / IJN: [id number] /
[2019-03-06 21:07] LABS: Glucose,Whole Blood 147 mg/dL (75-99)
[2019-03-07] MEDS: HYDROmorphone 1 MG/ML 1 ML SYRINGE IVP PRN ×3 (03:06→09:23)
[2019-03-07] MEDS: AMPICILLIN-SULBACTAM 3 GM in SODIUM CHLORIDE 0.9% 100 ML IVPB SCH ×3 (03:06→21:45)
[2019-03-07] MEDS: IBUPROFEN 400 MG TAB PO PRN (04:07)
[2019-03-07] MEDS: methylPREDNISolone SOD SUCCI 125 MG/2 ML VIAL IV SCH ×2 (05:13→12:45)
[2019-03-07] MEDS: LEVOTHYROXINE 50 MCG TAB PO SCH (05:13)
[2019-03-07 06:47] LABS: Basophils % (A) 0 %; Eosinophils % (A) 0 %; HCT 32.1 % (34.0-46.0); HGB 10.8 gm/dL (11.4-16.0); Lymphocytes # (A) 1.6 k/uL (1.0-4.8); Lymphocytes % (A) 8 %; MCH 30.7 pg (25.0-35.0); MCHC 33.6 g/dL (31.0-37.0); MCV 91.1 fL (80.0-100.0); Mean Platelet Volume 5.9; Monocytes # (A) 0.7 k/uL (0-1.0); Monocytes % (A) 4 %; Neutrophils # (A) 18.4 k/uL (1.3-7.7); Neutrophils % (A) 88 %; Platelet Count 326 k/uL (150-450); RBC 3.52 m/uL (3.80-5.40); RDW 13.5 % (11.5-15.5); WBC 21.1 k/uL (3.8-10.6)
[2019-03-07 06:48] LABS: African American GFR (CKD) >90 (>60 ml/min/1.73 sqM); Anion Gap 7 mmol/L; Blood Urea Nitrogen 9 mg/dL (7-17); Calcium 8.8 mg/dL (8.4-10.2); Carbon Dioxide 29 mmol/L (22-30); Chloride 103 mmol/L (98-107); Glucose 116 mg/dL (74-99); Non-African American GFR(CKD) >90 (>60 ml/min/1.73 sqM); Potassium 3.9 mmol/L (3.5-5.1); Sodium 139 mmol/L (137-145)
[2019-03-07 07:05] LABS: Glucose,Whole Blood 156 mg/dL (75-99)
[2019-03-07] MEDS: INSULIN ASPART (NovoLOG) 100 UNIT/ML VIAL SQ SCH ×2 (07:18→12:46)
[2019-03-07] MEDS: HEPARIN SODIUM,PORCINE 5,000 UNIT/ML 1 ML VIAL SQ SCH ×2 (07:25→21:45)
[2019-03-07] MEDS: PANTOPRAZOLE 40 MG TABLET PO SCH (07:25)
[2019-03-07 12:21] LABS: Glucose,Whole Blood 123 mg/dL (75-99)
[2019-03-07] MEDS: HYDROmorphone 0.5 MG/0.5 ML SYRINGE IVP PRN ×2 (12:45→19:20)
[2019-03-07] MEDS: MULTIVITAMINS, THERA 1 EACH TAB PO SCH (12:46)
[2019-03-07] MEDS ORDERED: LOPERAMIDE 2 MG CAP PO PRN (16:43)
[2019-03-07 16:50] LABS: Glucose,Whole Blood 140 mg/dL (75-99)
--- NOTE | 2019-03-07 17:36 | PN ---
PROGRESS NOTE DATE OF SERVICE: 03/07/2019 This 39-year-old woman who was admitted with acute right neck pain and right submandibular air space infection is on IV antibiotics. White count is still elevated. Patient had incision and drainage by Dr. Miner. The cultures are negative so far. PHYSICAL EXAMINATION: Alert and oriented times three. Pulse 60. Blood pressure 135/90, respiration 18, temperature 98.2, pulse ox 97% on room air. HEENT: Conjunctivae normal. Neck: Significant swelling present on the right side, status post incision and drainage. Cardiovascular S1, S2. Respirations: Breath sounds diminished in the bases. No rhonchi. No crackles. Abdomen soft. Nontender. Nervous system: no focal deficits. LABS: WBC 21.1. Yesterday it was 21.2, hemoglobin 10.8. ASSESSMENT: 1. Acute right neck pain with right submandibular air space infection, right buccal space infection secondary to infection, status post incision and drainage. 2. Increased white count with possible systemic inflammatory response syndrome. 3. History of anemia. 4. Hypocalcemia. 5. History of continued ongoing nicotine dependence. 6. History of THC. 7. History of chronic anemia. 8. History of section. RECOMMENDATIONS AND DISCUSSION: I recommend to continue current medications, management and symptomatic treatment. We will continue to monitor otherwise continue the antibiotics. Closely follow with ENT. Guarded prognosis. Further recommendations to follow. MMODL / IJN: [id number] / MTDD
[2019-03-07 21:09] LABS: Glucose,Whole Blood 137 mg/dL (75-99)
[2019-03-07] MEDS: HYDROcodone/APAP 5-325MG 1 EACH TAB PO PRN (21:54)
[2019-03-07 22:00] VITALS: PULSE 56
[2019-03-08] MEDS: HYDROmorphone 1 MG/ML 1 ML SYRINGE IVP PRN (00:14)
[2019-03-08] MEDS: AMPICILLIN-SULBACTAM 3 GM in SODIUM CHLORIDE 0.9% 100 ML IVPB SCH ×2 (03:57→12:40)
[2019-03-08 04:46] VITALS: BP 129/83; RESP 20; TEMP 98.3
[2019-03-08] MEDS: LEVOTHYROXINE 50 MCG TAB PO SCH (06:22)
[2019-03-08 07:03] LABS: Glucose,Whole Blood 108 mg/dL (75-99)
[2019-03-08] MEDS: PANTOPRAZOLE 40 MG TABLET PO SCH (08:35)
[2019-03-08] MEDS: HEPARIN SODIUM,PORCINE 5,000 UNIT/ML 1 ML VIAL SQ SCH (08:35)
[2019-03-08] MEDS: HYDROcodone/APAP 5-325MG 1 EACH TAB PO PRN (08:41)
--- NOTE | 2019-03-08 11:28 | PN ---
PROGRESS NOTE POSTOPERATIVE NOTE: DATE OF SERVICE: 03/08/2019. SUBJECTIVE: "I feel better." Patient is resting comfortably in bed, stating that the swelling and pain has decreased following the incision and drainage of the right submandibular space infection. OBJECTIVE: She is resting comfortably, in no apparent distress. The right submandibular region has marked decrease in swelling and tenderness to palpation. There is minimal drainage from the wound. The drain was removed yesterday. Intraorally, the extraction site of tooth #32 is pink with no evidence of infection or drainage. There is no swelling. The floor of the mouth is soft. There is no pharyngeal swelling. ASSESSMENT: The patient is much improved following the extraction of tooth #32 and incision and drainage of the right submandibular space infection. PLAN: The patient is ready for discharge from a surgical point of view. She can follow up in my office as an outpatient in 1 week. She was instructed to continue to apply heat to the area and advance her diet as tolerated. Augmentin would be a good choice for postoperative p.o. antibiotics upon discharge. MMODL / IJN: [id number] /
[2019-03-08 12:34] LABS: Glucose,Whole Blood 103 mg/dL (75-99)
[2019-03-08] MEDS: MULTIVITAMINS, THERA 1 EACH TAB PO SCH (12:40)
--- NOTE | 2019-03-09 10:11 | DS ---
DISCHARGE SUMMARY DATE OF SERVICE: 03/08/2019 FINAL DIAGNOSES: 1. Acute right neck pain, right submandibular space infection with right buccal space infection secondary to the carious tooth, status post incision and drainage. 2. Increased WBC possibly SIRS. 3. History of anemia. 4. Hypocalcemia. 5. History of continued ongoing nicotine dependence. 6. History of THC. 7. History of chronic anemia. 8. section. DISCHARGE DISPOSITION: The patient will be discharged in stable condition with guarded prognosis. Discharge cleared by Dr. Miner. HISTORY OF PRESENT ILLNESS: This 39-year-old woman was admitted with significant infection of submandibular space infection which is antigenic and from carious tooth. Dr. Miner saw the patient and performed incision and drainage and carious tooth extraction. Patient improved significantly. Patient was given IV antibiotics. White count improved, currently at 21.1, and Dr. Miner recommended outpatient followup. On exam, vitals are stable. CARDIOVASCULAR: S1, S2. ABDOMEN: Soft. NERVOUS SYSTEM: No focal deficits. Examination of the neck with minimal swelling present. DISCHARGE ADVICE: 1. The discharge diet is cardiac diet. 2. Activity limited until followup. 3. Follow up with Dr. Velez in 2 to 3 days. 4. Follow up with Dr. Miner as recommended. DISCHARGE MEDICATIONS: 1. Synthroid 100 mcg p.o. daily. 2. Augmentin 875 mg 1 p.o. b.i.d. for 1 week. 3. Motrin p.r.n. 4. Multivitamin 1 b.i.d. 5. Tylenol p.r.n. Once again, the patient will be discharged in stable condition with guarded prognosis. MMODL / IJN: [id number] /
== END 2019-03-08 13:31 | disposition home or self-care (01) | DRG 138 ==
LOC: EC 02:39 → 4MS4W 04:43 → OBSVTOIN 03-06 12:46
PROVIDERS: ADMIT Hospitalist; ATTEND Hospitalist
PROC: 0J910ZZ Drainage of Face Subcutaneous Tissue and Fascia, Open Approach (ICD-10-PCS; principal; 2019-03-05 14:00)
PROC: 0CDXXZ0 Extraction of Lower Tooth, Single, External Approach (ICD-10-PCS; principal; 2019-03-05 14:00)
DX: K02.9 Dental caries, unspecified (principal); K04.7 Periapical abscess without sinus; M27.2 Inflammatory conditions of jaws; K05.30 Chronic periodontitis, unspecified; D64.9 Anemia, unspecified; E87.6 Hypokalemia; E83.51 Hypocalcemia; E89.0 Postprocedural hypothyroidism; F17.210 Nicotine dependence, cigarettes, uncomplicated; Z79.2 Long term (current) use of antibiotics; Z79.890 Hormone replacement therapy; Z79.1 Long term (current) use of non-steroidal anti-inflammatories (NSAID); Z90.710 Acquired absence of both cervix and uterus; Z79.899 Other long term (current) drug therapy; Z98.891 History of uterine scar from previous surgery
CPT/HCPCS: 36415; 70110; 70491; 80048; 85025; 87070; 87075; 87205; 87324; 96365; 96366; 96375; 99285

== ENCOUNTER 2023-07-21 14:46 | Emergency (ER) | payer OTHER ==
[2023-07-21] MEDS: AMOXIC-POT CLAV 875-125MG 1 EACH TAB PO STA (15:09)
[2023-07-21] MEDS: KETOROLAC 15 MG/ML 1 ML VIAL IM STA (15:09)
[2023-07-21] MEDS: DEXAMETHASONE SOD PHOSPHATE 10 MG/ML 1 ML VIAL IM STA (15:09)
--- NOTE | 2023-07-21 15:11 | ED ---
ENT HPI - General Chief complaint: Dental/Oral Stated complaint: Dental Issue Time Seen by Provider: 07/21/23 14:52 Source: patient, RN notes reviewed Mode of arrival: ambulatory Limitations: no limitations - History of Present Illness Initial comments: This is a 43 year old female who presents to the emergency department for left sided dental pain. States that she has been dealing with pain to this area for several months and is struggling to find a local dentist who accepts her insurance. The last couple of days, states that she started to notice that the area around her tooth was swelling and is concerned about developing an infection. She is taking ibuprofen and using [id number] Orajel without much relief in symptoms. Denies any fever/chills. - Related Data Home Medications Medication Instructions Recorded Confirmed Levothyroxine Sodium [Synthroid] 100 mcg PO DAILY 03/04/19 03/04/19 Previous Rx's Medication Instructions Recorded Acetaminophen Tab [Tylenol] 650 mg PO Q6HR PRN tab 03/08/19 Amoxicillin/Potassium Clav 1 tab PO Q12HR #14 tab 03/08/19 [Augmentin 875-125 Tablet] Ibuprofen [Motrin] 400 mg PO Q6HR PRN #20 tab 03/08/19 Multivitamins, Thera [Multivitamin] 1 tab PO DAILY #30 tablet 03/08/19 Amoxic-Pot Clav 875-125Mg 1 tab PO Q12HR 10 Days #20 tab 07/21/23 [Augmentin 875-125] Ibuprofen [Motrin] 800 mg PO Q8H PRN #30 tab 07/21/23 Allergies Allergy/AdvReac Type Severity Reaction Status Date / Time No Known Allergies Allergy Verified 03/04/19 09:07 Review of Systems ROS Statement: Those systems with pertinent positive or pertinent negative responses have been documented in the HPI. ROS Other: All systems not noted in ROS Statement are negative. Past Medical History Past Medical History: Thyroid Disorder Additional Past Medical History / Comment(s): anemia History of Any Multi-Drug Resistant Organisms: None Reported Past Surgical History: Section, Hysterectomy Additional Past Surgical History / Comment(s): thyroid c sections x4 Past Psychological History: No Psychological Hx Reported Smoking Status: Light tobacco smoker Past Alcohol Use History: None Reported Past Drug Use History: Marijuana General Exam Limitations: no limitations General appearance: alert, in no apparent distress ENT exam: Present: other (Swelling along the left lower jawline suggestive of a developing dental abscess. No elevation of the tongue or swelling to the floor of the mouth.) Respiratory exam: Present: normal lung sounds bilaterally. Absent: respiratory distress, wheezes, rales, rhonchi, stridor Cardiovascular Exam: Present: regular rate, normal rhythm, normal heart sounds. Absent: systolic murmur, diastolic murmur, rubs, gallop, clicks Neurological exam: Present: alert, oriented X3, CN II-XII intact Psychiatric exam: Present: normal affect, normal mood Skin exam: Present: warm, dry, intact, normal color. Absent: rash Course Vital Signs 07/21/23 07/21/23 14:47 15:41 Temperature 97.9 F 98.8 F Pulse Rate 87 76 Respiratory 18 18 Rate Blood Pressure 130/87 122/80 O2 Sat by Pulse 99 99 Oximetry Medical Decision Making - Medical Decision Making This is a 43 year old female who presents to the emergency department for dental pain. Was pt. sent in by a medical professional or institution? @ -No Did you speak to anyone other than the patient for history? @ -No Did you review nursing and triage notes? @ -Yes, and I agree, it is accurate with regards to the patient's symptoms. Were old charts reviewed? @ -No Differential Diagnosis? @ -Differential Dental Pain: Dental abscess, chipped tooth, dental carries, jose d's angina, trigeminal neuralgia, this is not meant to be an all-inclusive list. EKG interpreted by me (3pts min.)? @ -Not obtained X-rays interpreted by me (1pt min.)? @ -Not obtained CT interpreted by me (1pt min.)? @ -Not obtained U/S interpreted by me (1pt. min.)? @ -Not obtained What testing was considered but not performed? (CT, X-rays, U/S, labs)? Why? @ -None What meds were considered but not given? Why? @ -None Did you discuss the management of the patient with other professionals? @ -No Did you reconcile home meds? @ -No Was smoking cessation discussed for >3mins.? @ -I discussed smoking cessation for greater than 3 minutes. The risk of smoking were discussed with the patient including but not limited to risks of cancer, stroke, coronary artery disease and COPD. Also discussed with patient were multiple methods of quitting smoking. Lastly we discussed the financial cost of smoking. Was critical care preformed (if so, how long)? @ -No Were there social determinants of health that impacted care today? How? (Homelessness, low income, unemployed, alcoholism, drug addiction, transportation, low edu. Level, literacy, decrease access to med. care, long term, rehab)? @ -No Was there de-escalation of care discussed even if they declined? (Discuss DNR or withdrawal of care, Hospice)? @ -No What co-morbidities impacted this encounter? (DM, HTN, Smoking, COPD, CAD, Cancer, CVA, Hep., AIDS, mental health diagnosis, sleep apnea, morbid obesity)? @ -Smoking Was patient admitted / discharged? @ -Discharged. Physical examination consistent with developing dental abscess. Advised that given the duration of her symptoms, some of her pain is likely due to the cracked teeth as opposed to just infection, and she will ultimately need to have the teeth dealt with for optimal management of the pain. Pain was managed in the emergency department. Rx for Ibuprofen and Augmentin provided with dosing instructions reviewed. She was also given information for follow up with oral surgery and discharged home in stable condition. Undiagnosed new problem with uncertain prognosis? @ -None Drug Therapy requiring intensive monitoring for toxicity (Heparin, Nitro, Insulin, Cardizem)? @ -None Were any procedures done? @ -None Diagnosis/symptom? @ -Dental abscess Acute, or Chronic, or Acute on Chronic? @ -Acute Uncomplicated (without systemic symptoms) or Complicated (systemic symptoms)? @ -Uncomplicated Side effects of treatment? @ -None Exacerbation, Progression, or Severe Exacerbation] @ -Not applicable Poses a threat to life or bodily function? @ -No Return precautions reviewed in depth, the patient is instructed to return to the emergency department with any new, worsening, or concerning symptoms. Patient verbalized understanding. This case was discussed in detail with the attending ED physician, Dr. Valentine. Presentation, findings, and treatment plan discussed in detail as well. Disposition Clinical Impression: Dental abscess, Nicotine dependence Disposition: HOME SELF-CARE Instructions (If sedation given, give patient instructions): Dental Abscess (ED) Additional Instructions: Return to the emergency department with any new, worsening, or concerning symptoms. Take the antibiotic as prescribed for 10 days. Alternate with Ibuprofen and Tylenol as needed for pain relief. Continue trying to become established with a dentist for definitive management. You can also try contacting the oral surgeon listed below. Follow up with your primary care provider in 1-2 days. Prescriptions: Amoxic-Pot Clav 875-125Mg [Augmentin 875-125] 1 tab PO Q12HR 10 Days #20 tab Ibuprofen [Motrin] 800 mg PO Q8H PRN #30 tab PRN Reason: Pain Is patient prescribed a controlled substance at d/c from ED?: No Referrals: None,Stated [Primary Care Provider] - 1-2 days Ray Rodriguez DDS [STAFF PHYSICIAN] - 1-2 days Time of Disposition: 15:21
[2023-07-21] MEDS: HYDROcodone/APAP 5-325MG 1 EACH TAB PO STA (15:37)
[2023-07-21] MEDS: ACET/COD 300 MG/30 MG STARTER PACK 6 TAB BTL PO STA (15:38)
[2023-07-21 16:11] VITALS: BP 122/80; PULSE 76; RESP 18; TEMP 98.8
== END 2023-07-21 15:41 | disposition home or self-care (01) ==
LOC: EC 14:46
DX: K04.7 Periapical abscess without sinus (principal); F17.200 Nicotine dependence, unspecified, uncomplicated
CPT/HCPCS: 99282; 96372 ×2; J1100; J1885

== ENCOUNTER 2024-02-24 11:20 | Emergency (ER) | payer OTHER, BC ==
[2024-02-24 11:39] VITALS: RESP 18; TEMP 98.1
--- NOTE | 2024-02-24 12:03 | ED ---
Skin/Abscess/FB HPI - General Chief complaint: Skin/Abscess/Foreign Body Stated complaint: welsh on L arm Time Seen by Provider: 02/24/24 11:35 Source: patient Mode of arrival: ambulatory Limitations: no limitations - History of Present Illness Initial comments: This is a 43-year-old female with a history of anemia, HS, and hypothyroidism presenting to the emergency department chief complaint of pain to her left axilla that started on Friday is worsening. States that she has a history of abscesses like this that have been previously incised. She denies fevers, chills, nausea, vomiting, drainage. Patient has followed with specialist in the past that have offered her surgery however she is declined. She denies known history of MRSA infection. - Related Data Home Medications Medication Instructions Recorded Confirmed Levothyroxine Sodium [Synthroid] 100 mcg PO DAILY 03/04/19 03/04/19 Previous Rx's Medication Instructions Recorded Acetaminophen Tab [Tylenol] 650 mg PO Q6HR PRN tab 03/08/19 Amoxicillin/Potassium Clav 1 tab PO Q12HR #14 tab 03/08/19 [Augmentin 875-125 Tablet] Ibuprofen [Motrin] 400 mg PO Q6HR PRN #20 tab 03/08/19 Multivitamins, Thera [Multivitamin] 1 tab PO DAILY #30 tablet 03/08/19 Amoxic-Pot Clav 875-125Mg 1 tab PO Q12HR 10 Days #20 tab 07/21/23 [Augmentin 875-125] Ibuprofen [Motrin] 800 mg PO Q8H PRN #30 tab 07/21/23 Cephalexin [Keflex] 500 mg PO Q6HR #40 cap 02/24/24 Ibuprofen [Motrin] 800 mg PO Q6HR #30 tab 02/24/24 Sulfamethox-Tmp 800-160Mg [Bactrim 1 each PO Q12HR #20 tab 02/24/24 Ds] Allergies Allergy/AdvReac Type Severity Reaction Status Date / Time No Known Allergies Allergy Verified 02/24/24 11:35 Review of Systems ROS Statement: Those systems with pertinent positive or pertinent negative responses have been documented in the HPI. ROS Other: All systems not noted in ROS Statement are negative. Past Medical History Past Medical History: Thyroid Disorder Additional Past Medical History / Comment(s): anemia History of Any Multi-Drug Resistant Organisms: None Reported Past Surgical History: Section, Hysterectomy Additional Past Surgical History / Comment(s): thyroid c sections x4 Past Psychological History: No Psychological Hx Reported Smoking Status: Light tobacco smoker Past Alcohol Use History: None Reported Past Drug Use History: Marijuana General Exam Limitations: no limitations General appearance: alert, in no apparent distress Eye exam: Present: normal appearance, PERRL, EOMI. Absent: scleral icterus, conjunctival injection, periorbital swelling Neck exam: Present: normal inspection. Absent: tenderness, meningismus, lymphadenopathy Respiratory exam: Present: normal lung sounds bilaterally. Absent: respiratory distress, wheezes, rales, rhonchi, stridor Cardiovascular Exam: Present: regular rate, normal rhythm, normal heart sounds. Absent: systolic murmur, diastolic murmur, rubs, gallop, clicks GI/Abdominal exam: Present: soft, normal bowel sounds. Absent: distended, tenderness, guarding, rebound, rigid Back exam: Present: normal inspection Skin exam: Present: erythema Expanded Type of lesion: Present: abscess Distribution of rash: LUE (axilla) Description of rash: Present: size (4 cm), tenderness, erythematous, swelling, discharge, fluctuant Course Vital Signs 02/24/24 02/24/24 11:36 12:39 Temperature 98.1 F 98.1 F Pulse Rate 89 84 Respiratory 18 18 Rate Blood Pressure 131/85 129/82 O2 Sat by Pulse 99 99 Oximetry Medical Decision Making - Medical Decision Making Was pt. sent in by a medical professional or institution (Dr. PA, [facility], urgent care, hospital, or skilled nursing...) When possible be specific @ -No Did you speak to anyone other than the patient for history (EMS, parent, family, police, friend...)? What history was obtained from this source @ -No Did you review nursing and triage notes (agree or disagree)? Why? @ -I reviewed and agree with nursing and triage notes Were old charts reviewed (outside hosp., previous admission, EMS record, old EKG, old radiological studies, urgent care reports/EKG's, skilled nursing records)? Report findings @ -No old charts were reviewed Differential Diagnosis (chest pain, altered mental status, abdominal pain women, abdominal pain men, vaginal bleeding, weakness, fever, dyspnea, syncope, headache, dizziness, GI bleed, back pain, seizure, CVA, palpatations, mental health, musculoskeletal)? @ -Cellulitis, abscess, folliculitis, HS, this list is not all inclusive EKG interpreted by me (3pts min.). @ -None X-rays interpreted by me (1pt min.). @ -None done CT interpreted by me (1pt min.). @ -None done U/S interpreted by me (1pt. min.). @ -None done What testing was considered but not performed or refused? (CT, X-rays, U/S, labs)? Why? @ -None What meds were considered but not given or refused? Why? @ -None Did you discuss the management of the patient with other professionals (professionals i.e. , PA, [facility], lab, RT, psych nurse, addiction social worker, concrete boom operator, teacher, [employer] plans staff officer, family service caseworker)? Give summary @ -No Was smoking cessation discussed for >3mins.? @ -No Was critical care preformed (if so, how long)? @ -No Were there social determinants of health that impacted care today? How? (Homelessness, low income, unemployed, alcoholism, drug addiction, transportation, low edu. Level, literacy, decrease access to med. care, shelter, rehab)? @ -No Was there de-escalation of care discussed even if they declined (Discuss DNR or withdrawal of care, Hospice)? DNR status @ -No What co-morbidities impacted this encounter? (DM, HTN, Smoking, COPD, CAD, Cancer, CVA, ARF, Chemo, Hep., AIDS, mental health diagnosis, sleep apnea, morbid obesity)? @ -None Was patient admitted / discharged? Hospital course, mention meds given and route, prescriptions, significant lab abnormalities, going to OR and other pertinent info. @ -Discharged. 43-year-old female with abscess and pain to left axilla. On evaluation patient noted to have approximately golf ball sized abscess to left axilla that appears to be mildly draining. There is surrounding erythema tenderness to palpation. Concern for a HS will not be incised as this can worsen disease progression. Patient is in agreement with deferring incision at this time as well. Patient is provided with dose of Toradol for pain relief in addition to Rocephin antibiotic. She has an outpatient prescription for Bactrim and Keflex in addition to Motrin. She is instructed to continue warm compresses and follow-up outpatient for further evaluation. Discussed with Dr. Maldonado. Undiagnosed new problem with uncertain prognosis? @ -No Drug Therapy requiring intensive monitoring for toxicity (Heparin, Nitro, Insulin, Cardizem)? @ -No Were any procedures done? @ -No Diagnosis/symptom? @ -HS, cellulitis abscess Acute, or Chronic, or Acute on Chronic? @ -acute Uncomplicated (without systemic symptoms) or Complicated (systemic symptoms)? @ -uncomplicated Side effects of treatment? @ -No Exacerbation, Progression, or Severe Exacerbation? @ -No Poses a threat to life or bodily function? How? (Chest pain, [place], [place], pneumonia, PE, COPD, DKA, ARF, appy, cholecystitis, CVA, Diverticulitis, Homicidal, Suicidal, threat to staff... and all critical care pts) @ -No Disposition Clinical Impression: Hidradenitis suppurativa, Cellulitis Disposition: HOME SELF-CARE Condition: Good Instructions (If sedation given, give patient instructions): Abscess (ED) Additional Instructions: Please return to the Emergency Department if symptoms worsen or any other concerns. Complete full course of antibiotics, Bactrim and Keflex, as prescribed. Take Motrin as needed. Continue warm compresses. Follow-up with general provider for further evaluation. Prescriptions: Sulfamethox-Tmp 800-160Mg [Bactrim Ds] 1 each PO Q12HR #20 tab Cephalexin [Keflex] 500 mg PO Q6HR #40 cap Ibuprofen [Motrin] 800 mg PO Q6HR #30 tab Is patient prescribed a controlled substance at d/c from ED?: No Referrals: None,Stated [Primary Care Provider] - 1-2 days Time of Disposition: 12:04
[2024-02-24] MEDS: KETOROLAC 15 MG/ML 1 ML VIAL IM STA (12:18)
[2024-02-24] MEDS: cefTRIAXone 1,000 MG VIAL (IM USE) IM STA (12:18)
[2024-02-24 12:43] VITALS: BP 129/82; PULSE 84
== END 2024-02-24 12:42 | disposition home or self-care (01) ==
LOC: EC 11:20
DX: L73.2 Hidradenitis suppurativa (principal); L03.112 Cellulitis of left axilla; F17.200 Nicotine dependence, unspecified, uncomplicated
CPT/HCPCS: 99283; 96372 ×2; J0696; J1885